=== PATIENT | male | born 1955 | race African-American/Black ===

== ENCOUNTER 2019-05-20 19:52 | Emergency (ER) | payer SELFPAY ==
[~2019-05-20] VITALS: Ht 193 cm; Wt 91.0 kg
[2019-05-20 19:58] VITALS: BP 136/84
== END 2019-05-20 22:15 | disposition left against medical advice (07) ==
LOC: ER 19:52
DX: G40.909 Epilepsy, unspecified, not intractable, without status epilepticus (principal)
CPT/HCPCS: 99283